=== PATIENT | female | born 1995 | race African-American/Black ===

== ENCOUNTER 2018-08-26 15:48 | Inpatient (IN) | payer OTHER ==
[2018-08-26] VITALS (34 sets, daily range): BP systolic 132–184; BP diastolic 71–122
[~2018-08-26] VITALS: Ht 167.6 cm; Wt 69.4 kg
[2018-08-26] MEDS ORDERED: PRENTAB9 PO (16:32)
[2018-08-26] MEDS ORDERED: IRON27TA2 PO (16:32)
[2018-08-26] MEDS ORDERED: CALCIUM GLUCONATE 1,000 MG in D5W MINI-BAG PLUS 100 ML IV PRN (17:15)
[2018-08-26] MEDS ORDERED: MAG Sulf (L&D) 4 GM/100 ML 4 GM in APPROPRIATE DILUENT 1 EA IV ONE (17:15)
--- NOTE | 2018-08-26 17:23 | HPEPDOC ---
Obstetrical History & Physical General Date of Admission Aug 26, 2018 at 17:06 History of Present Illness 23 y/o at 38+0 at routine appt today with 160/100's BP's noted. No VB or L OF or reg ctx's. Pos FM. Uncomplicated preg thus far. Information Provided By: Patient Care Care: Good Care Dating Final EDC by: 1st trimester (US) (15 wk US) Past Medical History Past Obstetrical History : Past Obstetrical History: [employer] History: No pertinent history Past Medical History Medical History denies Surgical History: Denies/None Family History Significant Family History: No pertinent family hx Social History Marital Status: Family situation: Spouse/partner home Psychosocial History: No pertinent psych hx * Smoker: non-smoker Alcohol: Denies Drugs: denies Abuse Violence Screening Have you been hit/kicked/slapp: No Have you been sexually assault: No Imunizations Tdap status: current Influenza Status: current Allergies Coded Allergies: No Known Allergies (Unverified , 08/26/18) Medications Scheduled (Iron) 27 Mg Tab, 1 TAB PO DAILY Multivitamins/ ( 27-0.8 mg) 1 Tab Tab, 1 TAB PO DAILY Physical Examination Physical Examination GENERAL: Alert and oriented times three. ABDOMEN: Gravid and non-tender to touch. FETUS: Is vertex (VTX) by sterile vaginal examination (SVE). 3-4/80/-1/vtx firmly applied RRR CTAB EXTREMITIES: No edema. No clonus. Deep tendon reflexes (DTRs) brisk Vital Signs/I&O Vital Signs Date Time Temp Pulse Resp B/P (MAP) Pulse Ox O2 Delivery O2 Flow Rate FiO2 08/26/18 16:22 97.3 80 16 160/101 (120) Pertinent Laboratoy Data Blood Type: A+ RBC Antibody Screen: Negative HIV: Positive Hepatitis B: Negative Hepatitis C: Unknown Rapid Plasma Reagin: Nonreactive Rubella: Immune Varicella: Immune Chlamydia/Gonorrhea: Negative Group B Streptococcus: Positive Quad Screen Test: Declined Cystic Fibrosis: Declined Anatomy Ultrasound Placenta Location: Posterior Normal Anatomy: Yes Placenta Previa: No Assessment Variability: Moderate Accelerations: Positive Decelerations: None Tocometer Contractions: Yes Frequency: regular Duration: less than 60 seconds Strength: palpated as mild Assessment/Plan Assessment 38+0 with persistent severe range BP's. Would not be safe to send home or prolong the . Will induce with pitocin. Plan Admit and orient. Dressage Judge and consent. Diet: NPO, small amt clears Group B Streptococcus (GBS) pos, PCN 5/2.5 when active labor Labs and intravenous (IV) per unit protocol. Counseled on Pitocin and induction of labor (IOL). Mag Sulfate 4 loading, 2/hr thereafter Lactated Ringers (LR): 125 mL/hr total with the Mag. 500 cc bolus of LR prior to epidural. Anticipate normal spontaneous delivery () C-S as appropriate. Routine neuro checks per [facility] SOP Labs pending, will trend if anything abnl. CARMELA,PIERCE Carson MD Aug 26, 2018 17:23
[2018-08-26] MEDS ORDERED: miSOPROStol 50 MCG 1/2 TAB (S0191) PO ONE (17:30)
[2018-08-26] MEDS ORDERED: PENICILLIN G POTASSIUM IV 5 MU in D5W MINI-BAG PLUS 100 ML IV STA (17:33)
[2018-08-26] MEDS ORDERED: OXYTOCIN DRIP 30 UNITS in APPROPRIATE DILUENT 1 EA IV SCH (17:45)
[2018-08-26] MEDS: LR 1,000 ML IV SCH (17:59)
[2018-08-26 18:17] LABS: HEMATOCRIT 38.4 % (36.0-47.0); HEMOGLOBIN 13.5 g/dl (12.0-15.5); MEAN CORPUSCULAR HEMOGLOBIN 31.8 pg (27.0-33.0); MEAN CORPUSCULAR HGB CONC 35.2 g/dl (32.0-36.5); MEAN CORPUSCULAR VOLUME 90.4 fl (80.0-96.0); PLATELET COUNT, AUTOMATED 280 10^3/uL (150-450); RED BLOOD COUNT 4.25 10^6/uL (4.00-5.40); WHITE BLOOD COUNT 7.9 10^3/uL (4.0-10.0)
[2018-08-26] MEDS: MAG Sulf (OBGYN) 20GM/500ML 20,000 MG in APPROPRIATE DILUENT 1 EA IV SCH (18:35)
[2018-08-26 18:37] LABS: ALT/SGPT 19 U/L (12-78); BILIRUBIN,TOTAL 0.3 MG/DL (0.2-1.0); CREATININE FOR GFR 0.68 MG/DL (0.55-1.30); GLOMERULAR FILTRATION RATE > 60.0 (>60); LDH LACTATE DEHYDROGENASE 188 U/L (84-246)
[2018-08-26 18:49] LABS: CREATININE,RANDOM URINE 60.2 MG/DL; TOTAL PROTEIN,RANDOM URINE 16.4 MG/DL (0.0-12.0)
[2018-08-26] MEDS ORDERED: FENTANYL 2MCG/ML ROPIVACAINE 0.2% IN 0.9% NACL 100ML IVBAG As Ordered ONE (20:01)
[2018-08-26] MEDS ORDERED: LACTATED RINGER'S 1000 ML IV PRN (20:30)
[2018-08-26] MEDS ORDERED: REFRIGERATOR IV KEYS XX PRN (20:30)
[2018-08-26] MEDS ORDERED: ePHEDrine SULFATE 25 MG/5 ML(5MG/ML) SYRINGE IV PRN (20:30)
[2018-08-26] MEDS ORDERED: NALOXONE INJ 0.4 MG/1 ML VIAL (J2310) IV PRN (20:30)
[2018-08-26] MEDS ORDERED: ONDANSETRON 4MG/2ML VIAL (J2405) IV PRN (20:30)
[2018-08-26] MEDS ORDERED: FENTANYL/ROPIVACAINE/NACL BAG 100 ML EPIDURAL SCH (20:30)
[2018-08-26] MEDS ORDERED: EPIDURAL COMMENT XX SCH (20:30)
[2018-08-26] MEDS ORDERED: diphenhydrAMINE INJ 50MG/ML VIAL (J1200) IV PRN (20:30)
[2018-08-26] MEDS ORDERED: EPIDURAL/PCA KEYS XX PRN (20:30)
[2018-08-26] MEDS ORDERED: PENICILLIN G POTASSIUM IV 2.5 MU in APPROPRIATE DILUENT 1 EA IV SCH (22:00)
--- NOTE | 2018-08-26 22:47 | IPNPDOC ---
Text Note Date of Service The patient was seen on 08/26/18. NOTE Nl Pre-e labs, Ur Pr/Cr 0.27 BP's nl or mild range since Mag Sulfate on board and now epidural Pit at 6 mu/min FHT Cat 1 Cx /0 DTR's 1+, no clonus, no vis changes or PANDA or CP or SOB Doing well, no S/S Mag tox. Plan on recheck and likely AROM in 2-3 hrs Sessions VS,Dee, I+O VSDee I+O Laboratory Tests 08/26/18 18:05 Red Blood Count 4.25, Mean Corpuscular Volume 90.4, Mean Corpuscular Hemoglobin 31.8, Mean Corpuscular Hemoglobin Concent 35.2, Red Cell Distribution Width 12.2, Aspartate Amino Transf (AST/SGOT) 23, Alanine Aminotransferase (ALT/SGPT) 19, Lactate Dehydrogenase 188, Total Bilirubin 0.3, Uric Acid 4.0 Vital Signs Date Time Temp Pulse Resp B/P (MAP) Pulse Ox O2 Delivery O2 Flow Rate FiO2 08/26/18 21:32 98.3 90 16 138/81 (100) SESSIONS,PIERCE Carson MD Aug 26, 2018 22:47
[2018-08-27] VITALS (55 sets, daily range): BP systolic 115–183; BP diastolic 67–122
[2018-08-27] MEDS: LR 1,000 ML IV SCH ×2 (01:16→16:51)
--- NOTE | 2018-08-27 01:54 | IPNPDOC ---
Text Note Date of Service The patient was seen on 08/27/18. NOTE BP's nl or mild range since Mag Sulfate on board and now epidural Pit at 12 mu/min FHT Cat 1 although signif BL change to ~100, mod yasmine and accels Cx 8/100/+1, AROM with no fluid (cork effect) DTR's 1+, no clonus, no vis changes or PANDA or CP or SOB Doing well, no S/S Mag tox but will drop to 1 gm/hr due to FHR change Plan on recheck in 1-2 hrs, sooner prn Sessions MD CARRILLO,Dee, I+O VSDee I+O Laboratory Tests 08/26/18 18:05 Red Blood Count 4.25, Mean Corpuscular Volume 90.4, Mean Corpuscular Hemoglobin 31.8, Mean Corpuscular Hemoglobin Concent 35.2, Red Cell Distribution Width 12.2, Aspartate Amino Transf (AST/SGOT) 23, Alanine Aminotransferase (ALT/SGPT) 19, Lactate Dehydrogenase 188, Total Bilirubin 0.3, Uric Acid 4.0 Vital Signs Date Time Temp Pulse Resp B/P (MAP) Pulse Ox O2 Delivery O2 Flow Rate FiO2 08/27/18 01:18 75 16 08/27/18 01:17 146/92 (110) 08/27/18 00:17 97.9 I&O- Last 24 Hours up to 6 AM 08/27/18 06:00 Intake Total 498.5 ml Output Total 1600 ml Balance -1101.5 ml SESSIONS,PIERCE Carson MD Aug 27, 2018 01:54
[2018-08-27] MEDS: MAG Sulf (OBGYN) 20GM/500ML 20,000 MG in APPROPRIATE DILUENT 1 EA IV SCH ×3 (02:30→23:40)
[2018-08-27] MEDS ORDERED: OXYTOCIN DRIP 30 UNITS in APPROPRIATE DILUENT 1 EA IV SCH (03:11)
[2018-08-27] MEDS ORDERED: RHOGAM 300 MCG (1500 IU) INJ (J2790) IM SCH (03:15)
[2018-08-27] MEDS ORDERED: METOCLOPRAMIDE INJ 10MG/2ML VIAL (J2765) IV PRN (03:15)
[2018-08-27] MEDS ORDERED: MEASLES,MUMPS,RUBELLA VACCINE INJ (MMR-II) (90707) SC SCH (03:15)
[2018-08-27] MEDS ORDERED: DIBUCAINE 1% OINTMENT 30GM TOP PRN (03:15)
--- NOTE | 2018-08-27 03:17 | DNPDOC ---
[facility] Delivery Note Delivery Note DATE OF DELIVERY: [id number] PREDELIVERY DIAGNOSIS: 38 1/7 weeks' gestation and labor. POST DELIVERY DIAGNOSIS: Delivered. PROCEDURE: Spontaneous vaginal delivery PROJECT OFFICER: Dr. Casey ANESTHESIA: epidural ESTIMATED BLOOD LOSS: 200 mL. FINDINGS: 6 pound 0 ounce female infant, Score 9/9 DELIVERY SUMMARY: called, fully dilated and +3. Great effort. Del uncomplicated. Del'd YENY restituted to ROT, no delay of either shoulder. To abd in good shape. Cord C/C by FOB. Plac intact, fundus firm, pit going 999. Small periurethral lac closed with 4-0 vicyrl. Good cosmesis/hemostasis. No lacs to cx or vag or per. Janine CASEY,PIEREC Carson MD Aug 27, 2018 03:17
[2018-08-27] MEDS ORDERED: LABETALOL HCL 100 MG/20 ML VIAL IV STA (04:18)
[2018-08-27] MEDS: LABETALOL 200 MG TAB PO SCH ×3 (05:30→22:15)
[2018-08-27] MEDS: DOCUSATE SODIUM 100 MG CAP PO SCH ×2 (08:31→21:00)
[2018-08-27] MEDS: PRENATAL VITAMINS CHEWABLE TABLET PO SCH (08:31)
[2018-08-27] MEDS: IBUPROFEN 800 MG TAB PO PRN (08:31)
--- NOTE | 2018-08-27 15:57 | IPNPDOC ---
Progress Note Date of Service: Aug 27, 2018 Progress Note Ms. Barrientos is a 23 yo G1 now P1 who is s/p uncomplicated at ~0300 this AM after undergoing an IOL for severe pre eclampsia. She is currently receiving 2gm/hr magnesium drip for seizure prophylaxis. Ms. Barrientos reports feeling well overall just tired. She denies any current headaches, RUQ pain, or visual changes. Vitals - BPs mildly elevated, 140s-150s/80-90s, afebrile, non tachycardic General - AAOX3, laying in bed, NAD, breast feeding Extremities - 1+ edema urine output - Excellent, >100ml/hr Ms. Barrientos overall doing well. No signs/symptoms of mag toxicity. UO excellent. BPs stable, though mildly elevated. Will continue TID labetalol dosing. May need to titrate up or add another agent should pressures continue to rise. Continue mag drip until ~0300 on [id number]. All patient questions answered. Sophie Colby, DO VS, I&O, 24H, Dee Vital Signs/I&O Vital Signs Date Time Temp Pulse Resp B/P (MAP) Pulse Ox O2 Delivery O2 Flow Rate FiO2 08/27/18 15:02 87 16 141/93 (109) Room Air 08/27/18 13:00 98.7 08/27/18 11:00 100 I&O- Last 24 Hours up to 6 AM 08/27/18 06:00 Intake Total 1751.0 ml Output Total 4500 ml Balance -2749.0 ml Laboratory Data 24H LABS Laboratory Tests 2 08/26/18 17:33: Serology Scanned Report Hepatitis B Testing 08/26/18 17:55: Urine Random Creatinine 60.2, Urine Random Total Protein 16.4H 08/26/18 18:05: Nucleated Red Blood Cells % (auto) 0.0, Glomerular Filtration Rate > 60.0, Crea tinine 0.68, Aspartate Amino Transf (AST/SGOT) 23, Alanine Aminotransferase (ALT/SGPT) 19, Lactate Dehydrogenase 188, Total Bilirubin 0.3, Uric Acid 4.0, Syphilis Serology NONREACTIVE CBC/BMP Laboratory Tests 08/26/18 18:05 Red Blood Count 4.25, Mean Corpuscular Volume 90.4, Mean Corpuscular Hemoglobin 31.8, Mean Corpuscular Hemoglobin Concent 35.2, Red Cell Distribution Width 12.2, Aspartate Amino Transf (AST/SGOT) 23, Alanine Aminotransferase (ALT/SGPT) 19, Lactate Dehydrogenase 188, Total Bilirubin 0.3, Uric Acid 4.0 SOPHIE COLBY DO Aug 27, 2018 15:57
[2018-08-28] VITALS (9 sets, daily range): BP systolic 120–179; BP diastolic 66–103
--- NOTE | 2018-08-28 00:21 | IPNPDOC ---
Progress Note Date of Service: Aug 28, 2018 Progress Note Ms. Barrientos is a 23 yo G1 now P1 who is s/p uncomplicated at ~0300 on [id number] after undergoing an IOL for severe pre eclampsia. She is currently receiving 2gm/hr magnesium drip for seizure prophylaxis. Ms. Barrientos reports feeling well overall just tired and a mild headache. She denies any RUQ pain, or visual changes. Vitals - BPs mildly elevated, 140s-150s/80-90s, afebrile, non tachycardic General - AAOX3, laying in bed, NAD, breast feeding Extremities - 1+ edema urine output - Excellent, >100ml/hr Ms. Barrientos overall doing well. No signs/symptoms of mag toxicity. UO excellent. BPs stable, though mildly elevated. Will continue TID labetalol dosing. May need to titrate up or add another agent should pressures continue to rise. Continue mag drip until ~0300 on [id number]. Regular diet now as patient is doing well. All patient questions answered. Sophie Colby DO VS, I&O, 24H, Fishbone Vital Signs/I&O Vital Signs Date Time Temp Pulse Resp B/P (MAP) Pulse Ox O2 Delivery O2 Flow Rate FiO2 08/27/18 23:00 72 17 155/99 (117) Room Air 08/27/18 22:00 97.9 100 I&O- Last 24 Hours up to 6 AM 08/28/18 06:00 Intake Total 3810 ml Output Total 3635 ml Balance 175 ml SOPHIE COLBY DO Aug 28, 2018 00:21
[2018-08-28] MEDS: LABETALOL 200 MG TAB PO SCH ×3 (06:07→21:40)
--- NOTE | 2018-08-28 07:15 | IPNPDOC ---
Progress Note Date of Service: Aug 28, 2018 Progress Note Ms. Barrientos is a 23 yo G1 now P1 who is s/p uncomplicated at ~0300 on [id number] after undergoing an IOL for severe pre eclampsia. She completed 24 hours of IV magnesium for seizure prophylaxis as of 030 this AM. Ms. Barrientos reports feeling well overall just tired. However she feels better now that the magnesium is done. She denies any RUQ pain, or visual changes. Vitals - BPs improved though still occasionally elevated, afebrile, non tachycardic General - AAOX3, laying in bed, NAD, pleasant and conversant Abdomen - Fundus firm at U-2, no fundal tenderness Extremities - No edema urine output - Excellent, >100ml/hr Ms. Barrientos overall doing well. She has completed 24 hours of magnesium therapy. Blood pressures are stable on TID labetalol. Today will continue to encourage ambulation and . Continue regular diet. Monitor BPs closely throughout the day. If pressures remain stable will consider discharge home tomorrow AM. Sophie Colby DO VS, I&O, 24H, Fishbone Vital Signs/I&O Vital Signs Date Time Temp Pulse Resp B/P (MAP) Pulse Ox O2 Delivery O2 Flow Rate FiO2 08/28/18 06:08 98.8 74 17 130/83 (99) 08/28/18 03:00 Room Air 08/27/18 22:00 100 I&O- Last 24 Hours up to 6 AM 08/28/18 06:00 Intake Total 5110 ml Output Total 4750 ml Balance 360 ml SOPHIE COLBY DO Aug 28, 2018 07:15
[2018-08-28] MEDS: DOCUSATE SODIUM 100 MG CAP PO SCH ×2 (08:09→21:40)
[2018-08-28] MEDS: PRENATAL VITAMINS CHEWABLE TABLET PO SCH (08:09)
[2018-08-28] MEDS: ACETAMINOPHEN TAB 650MG DOSE (2X325MG) PO PRN ×2 (14:22)
[2018-08-29] VITALS (7 sets, daily range): BP systolic 131–166; BP diastolic 78–101
[2018-08-29] MEDS: LABETALOL 200 MG TAB PO SCH ×3 (05:55→21:34)
[2018-08-29] MEDS ORDERED: NIFEdipine 10 MG CAP PO SCH (09:00)
[2018-08-29] MEDS: PRENATAL VITAMINS CHEWABLE TABLET PO SCH (09:00)
[2018-08-29] MEDS: DOCUSATE SODIUM 100 MG CAP PO SCH ×2 (09:00→21:33)
[2018-08-29] MEDS: IBUPROFEN 800 MG TAB PO PRN (14:17)
--- NOTE | 2018-08-29 15:28 | IPN ---
DATE: 08/29/2018 This lady is a 23-year-old 1 who came in for routine care and found to have a blood pressure in the severe range, 160/100. She was transferred to labor and delivery for induction of labor. She was GBS positive and had appropriate antibiotic coverage. She had a spontaneous vaginal delivery with epidural in place of a live- female , 6 pounds 0 ounces, scores of 9 and 9 at one and five minutes respectively. She subsequently because of her severe preeclampsia was receiving magnesium sulfate at 2 grams an hour, and she had that magnesium sulfate for 24 hours. Her plan was for discharge today; however, in reviewing her vital signs, she is still within the mid to severe-range blood pressures despite the fact being on labetalol 200 every 8 hours. Her blood pressures range from 166/100 to 157/103; therefore, today she is being started on nifedipine in conjunction with her labetalol and will be monitored for a 24-hour period in order to review medication effects and see if we cannot bring her blood pressures down to the either normalized or to mid range blood pressures. We discussed with the patient the plan of action and care. She seemed to express understanding, and we will start her on her nifedipine this morning.
[2018-08-30] VITALS (7 sets, daily range): BP systolic 131–174; BP diastolic 71–104
[2018-08-30] MEDS ORDERED: LABETALOL 200 MG TAB PO ONE (03:15)
[2018-08-30] MEDS ORDERED: NIFEdipine 30 MG XL TAB PO ONE (03:15)
[2018-08-30] MEDS: LABETALOL 200 MG TAB PO SCH ×2 (06:09→13:46)
[2018-08-30] MEDS ORDERED: NIFEdipine 30 MG XL TAB PO SCH (09:00)
[2018-08-30] MEDS: DOCUSATE SODIUM 100 MG CAP PO SCH (09:02)
[2018-08-30] MEDS: PRENATAL VITAMINS CHEWABLE TABLET PO SCH (09:02)
[2018-08-30] MEDS: IBUPROFEN 800 MG TAB PO PRN (11:22)
--- NOTE | 2018-08-30 12:26 | DS.PDOC ---
Discharge Summary General Date of Admission Aug 26, 2018 at 17:06 Date of Discharge Aug 30, 2018 Discharge Summary HOSPITAL COURSE: Ms. Barrientos is a 23 yo G1 now P1 who underwent an uncomplicated on [id number] in the program admin hours after being admitted for an IOL for severe pre eclampsia. She received 24 hours of magnesium for seizure prophylaxis. Her blood pressures were ultimately controlled with Labetalol and Nifedipine . Otherwise she had an uncomplicated course. On her day of discharge she met all appropriate discharge criteria. She was ambulating, voiding, tolerating a regular diet, and her pain was well controlled. Lochia remained minimal throughout her hospital stay. DISCHARGE MEDICATIONS: Please see below. ALLERGIES: Please see below. PHYSICAL EXAMINATION ON DISCHARGE: VITAL SIGNS: Please see below. GENERAL: AAOX3, sitting up in bed, pleasant and conversant, NAD ABDOMINAL EXAMINATION: Fundus firm at U-2. No fundal tenderness EXTREMITIES: No edema PSYCHIATRIC EXAMINATION: Affect appropriate. LABORATORY DATA: Please see below. ACTIVITY: Pelvic rest for 6 weeks DIET: Regular DISCHARGE PLAN: Discharge home on [id number] DISPOSITION: Discharge home. DISCHARGE INSTRUCTIONS: 1. Follow up in the [facility] on [id number] for a blood pressure check. 2. supervisor edging blood pressure medication at [facility] pharmacy 3. Pelvic rest for 6 weeks ITEMS TO FOLLOWUP ON ON OUTPATIENT: 1. Return to care on [id number] for a blood pressure check. 2. appointment in 6 weeks DISCHARGE CONDITION: Stable. TIME SPENT ON DISCHARGE: Greater than 20 minutes. Sophie Colby DO Vital Signs/I&Os Vital Signs Date Time Temp Pulse Resp B/P (MAP) Pulse Ox O2 Delivery O2 Flow Rate FiO2 08/30/18 10:23 98.7 84 20 131/71 (91) 08/30/18 06:00 Room Air 08/28/18 21:30 99 Discharge Medications Scheduled (Iron) 27 Mg Tab, 1 TAB PO DAILY, (Reported) Multivitamins/ ( 27-0.8 mg) 1 Tab Tab, 1 TAB PO DAILY, (Reported) Allergies Coded Allergies: No Known Allergies (Unverified , 08/26/18) SOPHIE COLBY DO Aug 30, 2018 12:26
[2018-08-30] MEDS ORDERED: COLA100C5 PO (12:41)
[2018-08-30] MEDS ORDERED: LABE20TAB PO (12:45)
[2018-08-30] MEDS ORDERED: IBUP-1114 PO (12:46)
[2018-08-30] MEDS ORDERED: MAPA500T17 PO (12:46)
[2018-08-30] MEDS ORDERED: DIBU1OIN TOP (12:47)
[2018-08-30] MEDS ORDERED: PROC60TA PO (12:49)
== END 2018-08-30 13:50 | disposition home or self-care (01) | DRG 807 ==
LOC: M LDO 15:48 → M LDI 17:06 → M OBS 08-27 09:15
PROVIDERS: ADMIT Obstetrics & Gynecology; ATTEND Obstetrics & Gynecology
PROC: 3E033VJ Introduction of Other Hormone into Peripheral Vein, Percutaneous Approach (ICD-10-PCS; 2018-08-26)
PROC: 10E0XZZ Delivery of Products of Conception, External Approach (ICD-10-PCS; principal; 2018-08-27)
PROC: 0HQ9XZZ Repair Perineum Skin, External Approach (ICD-10-PCS; 2018-08-27)
DX: O14.14 Severe pre-eclampsia complicating childbirth (principal); Z37.0 Single live birth; Z3A.38 38 weeks gestation of pregnancy; O99.820 Streptococcus B carrier state complicating pregnancy; O70.0 First degree perineal laceration during delivery